=== PATIENT | male | born 1950 | race Caucasian/White ===

== ENCOUNTER 2020-05-05 00:57 | Outpatient (CLI) | payer MEDICARE, SELFPAY ==
--- NOTE | 2020-05-05 | DI.NM_ITS ---
APPROVED REPORT Exam: Exercise Treadmill Patient Location: Out-Patient Room/Bed: Stress Nurse: Eva Sun RN BMI: 200.57 Baseline Rhythm: Sinus Rhythm Indications: chest pain. Medical History Cardiac Medications: Aspirin Allergies: No known drug allergies Cardiac Risk Factors: FHX of CAD. Former smoker. Exercise History: Indeterminate Lung Sounds: Clear to auscultation Heart Sounds: Regular Stress Test Details Test: Exercise stress testing was performed using a Jani protocol. Nuclear Acquisition: Rest Tc-99m/Stress Tc-99m 1 day Rest Isotope: Tc-99m Sestamibi. Dose: 10.8 Date: 05/05/2020 Injection Time: 1130 Stress Isotope: Tc-99m Sestamibi. Dose: 30.2 Date: 05/05/2020 Injection Time: 1430 HR Resting HR Supine: 78 bpm Max Heart Rate (APMHR): 152 bpm Resting HR Standin bpm Target HR (85% APMHR): 129 bpm Max HR Achieved: 156 bpm % of APMHR: 102 Recovery HR: 98 bpm HR response to stress: Accelerated HR response to stress BP Resting BP Supine: 130/82 mmHg Resting BP Standin/84 mmHg Max BP: 166/64 mmHg Recovery BP: 134/78 mmHg BP response to stress: Normal blood pressure response to stress. ECG Resting ECG: Sinus Rhythm Stress ECG: Sinus Tachycardia ST Change: No significant ST segment changes Recovery ECG: Sinus Rhythm Recovery ST Change: No siginificant ST segment changes Clinical Reason for Termination: Fatigue Stress Symptoms: Chest pain Exercise duration: 5 min16 sec Highest Stage Reached: Stage 2: 2.5 mph at 12% grade. Exercise capacity: 7.05 METs Functional Capacity: Mildly diminished capacity Stress ECG Conclusion 1. The patient exercised for 5 minutes (7 METS). Patient has symptoms of chest pain. 2. There were no EKG changes suggestive of ischemia. Stress Test Summary STAGE Time (mins) Speed (mph) Grade (%) HR BP SYMPTOMS METS Supine 78 130/82 Standing 87 118/84 1 3 1.7 10 109 158/76 4.6 1 min recovery chest tightness, pt described as 5/10 and sharp 3 min recovery 118 166/64 6 min recovery 106 158/72 Chest pain subsided. 9 min recovery 98 134/78 MPI Conclusion Ejection fraction was 72% with stress. There were no wall motion abnormalities. There is no evidence of ischemia in the imaging portion of the exam. This represents a normal SPECT stress test. Radiologist Interpretation Radiologist Interpretation by: Dimitry Woodall MD Interpretation Date/Time: 05/05/2020 16:12:27
== END 2020-05-05 01:17 ==
PROVIDERS: PCP Physician Assistant Medical; Visit Provider Internal Medicine Interventional Cardiology
DX: R07.9 Chest pain, unspecified (principal); Z82.49 Family history of ischemic heart disease and other diseases of the circulatory system; Z87.891 Personal history of nicotine dependence
CPT/HCPCS: 78452; 93016; 93018; 93017

== ENCOUNTER → 2020-07-30 09:41 | Outpatient (BNVA) | payer MEDICARE, SELFPAY | PROVIDERS: PCP Physician Assistant Medical; Referring Provider Internal Medicine Interventional Cardiology; Visit Provider Psychiatry & Neurology Neurology | DX: G62.9 Polyneuropathy, unspecified (principal); E53.8 Deficiency of other specified B group vitamins | CPT/HCPCS: 99203 ==